=== PATIENT | male | born 1975 | race African-American/Black ===

== ENCOUNTER 2018-06-23 09:49 | Emergency (ER) | payer OTHER ==
[2018-06-23 09:59] VITALS: BP 124/88
--- NOTE | 2018-06-23 10:27 | UC ---
Skin Complaint HPI - HPI Summary HPI Summary: 3 days of sore throat , fever, chills. Some cough but not really. Started w/ L sided neck pain and swelling. He feels it is a mass. nothing makes it better. movement of neck makes pain worse. - History of Current Complaint Chief Complaint: UCGeneralIllness Time Seen by Provider: 06/23/18 09:55 Stated Complaint: SWOLLEN NECK Hx Obtained From: Patient Onset/Duration: Sudden Onset Pain Intensity: 7 Pain Scale Used: 0-10 Numeric Character: Swelling, Raised, Painful Aggravating Factor(s): Other Alleviating Factor(s): Nothing Associated Signs & Symptoms: Positive: Fever. Negative: Nausea, Vomiting, Wheezing, Chest Pain, Rash - Allergy/Home Medications Allergies/Adverse Reactions: Allergies Allergy/AdvReac Type Severity Reaction Status Date / Time No Known Allergies Allergy Verified 06/23/18 09:58 Home Medications: Home Medications Asmanex 110 MCG MDI * 110 mcg INH DAILY 06/23/18 [History Confirmed 06/23/18] PMH/Surg Hx/FS Hx/Imm Hx - Additional Past Medical History Additional PMH: he reports Neg TB test w/in this year and up to date w/ vaccines. Previously Healthy: Yes - Surgical History Surgical History: Yes Surgery Procedure, Year, and Place: right knee - Family History Known Family History: Positive: None - Social History Alcohol Use: None Substance Use Type: None Smoking Status (MU): Never Smoked Tobacco - Immunization History Hx Tetanus, Diphtheria Vaccination: Yes Immunizations Comment: From [place] but feels he got all vaccines he needed to work in [place] Review of Systems All Other Systems Reviewed And Are Negative: Yes Constitutional: Positive: Fever, Chills. Negative: Fatigue Skin: Negative: Rash ENT: Positive: Sore Throat. Negative: Dental Pain, Ear Ache, Sinus Congestion Respiratory: Negative: Cough Cardiovascular: Positive: Negative Gastrointestinal: Negative: Vomiting, Diarrhea, Nausea Musculoskeletal: Positive: Other: - neck pain and swelling on L side Neurological: Negative: Headache Physical Exam Triage Information Reviewed: Yes Appearance: Well-Appearing Vital Signs: Initial Vital Signs Temp 99.6 F 06/23/18 09:54 Pulse 54 06/23/18 09:54 Resp 15 06/23/18 09:54 BP 124/88 06/23/18 09:54 Pulse Ox 100 06/23/18 09:54 Vital Signs Reviewed: Yes Eyes: Positive: Conjunctiva Clear ENT: Positive: Pharyngeal erythema, TMs normal, Uvula midline. Negative: Tonsillar exudate, Muffled voice Neck: Positive: Nuchal Rigidity - mild when and worsened when he turns to L, Tenderness @ - L post. cerv chain, Enlarged Nodes @ - severe: L post. cerv chain , Other: - R cerv. chain lymph nodes unremarkable. Respiratory Exam: Normal Cardiovascular Exam: Normal Neurological: Positive: Other: - neck has FROM Skin: Negative: Rashes Course/Dx - Course Course Of Treatment: Sore throat and L sided neck mass developing. felt feverish and chills. rapid strep : POSITIVE today and US of L post. cevrvical chain obtained which showed inflammation of lymph nodes; NO abscess. Will tx w / antibx. of note he reports he is up to date w/ vaccines. afebrile today. he shoudl f/u if no improvement in 3-5 days. - Differential Diagnoses - Skin Complaint Differential Diagnoses: Lymphadenitis, Lymphangitis - Diagnoses Provider Diagnosis: Strep pharyngitis, Lymphadenitis Discharge - Sign-Out/Discharge Documenting (check all that apply): Patient Departure All imaging exams completed and their final reports reviewed: Yes - Discharge Plan Condition: Good Disposition: HOME Prescriptions: Penicillin VK TAB* [Penicillin VK 250 mg Tab*] 500 mg PO BID 10 Days #20 tab Patient Education Materials: Strep Throat (ED) Referrals: Francis Lazo MD [Primary Care Provider] - Additional Instructions: Please finish antibiotics to completion - Billing Disposition and Condition Condition: GOOD Disposition: Home
== END 2018-06-23 11:35 | disposition home or self-care (01) ==
LOC: UCEAST 09:49
DX: J02.0 Streptococcal pharyngitis (principal); I88.9 Nonspecific lymphadenitis, unspecified
CPT/HCPCS: 76536; 87651; 99202; G0463